=== PATIENT | male | born 1965 | race Caucasian/White ===

== ENCOUNTER 2019-07-01 09:26 | Emergency (ER) | payer OTHER ==
[~2019-07-01] VITALS: Ht 177.8 cm; Wt 108.9 kg
[2019-07-01] MEDS ORDERED: SYNTHROID50 MCG PO (09:39)
[2019-07-01] MEDS ORDERED: CHOLESTEROL MED (09:40)
[2019-07-01] MEDS ORDERED: KEFLEX500 M1 PO (11:23)
[2019-07-01] MEDS ORDERED: NORCO 5-325 TA1 EAC1 PO (11:23)
[2019-07-01 11:50] VITALS: BP 87/45
== END 2019-07-01 11:51 | disposition home or self-care (01) ==
LOC: M.ERS 09:26
DX: S52.501A Unspecified fracture of the lower end of right radius, initial encounter for closed fracture (principal); S61.411A Laceration without foreign body of right hand, initial encounter; E78.00 Pure hypercholesterolemia, unspecified; E03.9 Hypothyroidism, unspecified; W23.0XXA Caught, crushed, jammed, or pinched between moving objects, initial encounter; Y93.89 Activity, other specified; Y92.89 Other specified places as the place of occurrence of the external cause; Y99.8 Other external cause status